=== PATIENT | male | born 1980 | race Caucasian/White ===

== ENCOUNTER 2022-03-23 18:18 | Inpatient (IN) | payer BC ==
[2022-03-23 19:12] LABS: CORONAVIRUS COVID-19 NAA NEGATIVE (NEGATIVE); INFLUENZA A NAA NEGATIVE (NEGATIVE); INFLUENZA B NAA NEGATIVE (NEGATIVE)
[2022-03-23] MEDS ORDERED: Sodium Chloride 0.9% 1,000 ML IV ONE (19:20)
[2022-03-23 19:21] LABS: CARBON DIOXIDE,CO2 26.5 mmol/L (21.0-32.0); POTASSIUM,K 3.8 mmol/L (3.5-5.1)
[2022-03-23] MEDS ORDERED: Ondansetron 4 MG/2 ML SDV IVPUSH ONE (21:10)
[2022-03-23] MEDS ORDERED: Iopamidol 755 MG/ML 500 ML Multipack Bottle IVPUSH STA (21:28)
[2022-03-23] MEDS: HYDROmorphone 1 MG/ML Syringe IVPUSH ONE ×2 (21:49→21:58)
[2022-03-23] MEDS ORDERED: cefTRIAXone 1 GM in Sodium Chloride 0.9% 50 ML IV ONE (22:27)
[2022-03-23] MEDS ORDERED: Azithromycin 500 MG in Sodium Chloride 0.9% 250 ML IV ONE (22:28)
[2022-03-23] MEDS ORDERED: Enoxaparin 100 MG/1 ML Syringe SUBCUT ONE (22:29)
[2022-03-24] MEDS ORDERED: Acetaminophen 325 MG Tab PO PRN (00:41)
[2022-03-24] MEDS ORDERED: oxyCODONE 5 MG Tab PO PRN (00:41)
[2022-03-24] MEDS ORDERED: Ondansetron 4 MG/2 ML SDV IVPUSH PRN (09:00)
[2022-03-24] MEDS ORDERED: Docusate Sodium 100 MG Cap PO PRN (09:00)
[2022-03-24] MEDS ORDERED: Albuterol/Ipratropium 3.0-0.5 MG/3 ML Neb Soln NEB PRN (10:00)
[2022-03-24] MEDS: Apixaban 5 MG Tab PO SCH ×2 (10:49→20:10)
[2022-03-24] MEDS ORDERED: cefTRIAXone 1 GM in Sodium Chloride 0.9% 50 ML IV SCH (21:00)
[2022-03-24] MEDS ORDERED: Azithromycin 500 MG in Sodium Chloride 0.9% 250 ML IV SCH (22:00)
[2022-03-25 04:47] VITALS: PULSE 83
[2022-03-25 06:05] LABS: HEMOGLOBIN A1C 6.2 %
[2022-03-25 06:07] LABS: CARBON DIOXIDE,CO2 28.2 mmol/L (21.0-32.0); POTASSIUM,K 4.3 mmol/L (3.5-5.1)
[2022-03-25] MEDS: Apixaban 5 MG Tab PO SCH (08:51)
[2022-03-25 09:43] VITALS: BP 140/78
== END 2022-03-25 12:50 | disposition home or self-care (01) | DRG 134 ==
LOC: MW.ED 18:18 → MW.MS 22:45
PROVIDERS: ADMIT Internal Medicine; ATTEND Internal Medicine
DX: I26.99 Other pulmonary embolism without acute cor pulmonale (principal); J18.9 Pneumonia, unspecified organism; J96.01 Acute respiratory failure with hypoxia; J45.909 Unspecified asthma, uncomplicated; G47.33 Obstructive sleep apnea (adult) (pediatric); E66.01 Morbid (severe) obesity due to excess calories; Z20.822 Contact with and (suspected) exposure to COVID-19; Z68.44 Body mass index [BMI] 60.0-69.9, adult; Z79.1 Long term (current) use of non-steroidal anti-inflammatories (NSAID); Z87.891 Personal history of nicotine dependence
CPT/HCPCS: 0240U; 36415; 71045; 71045-26; 71275; 71275-26; 80048; 80053; 80061; 83036; 83735; 84443; 84484; 85025; 85379; 85610; 85730; 87040; 93005; 93306; 93970; 93970-26; 94667; 96361; 96365; 96368; 96372; 96375; 99222; 99239; 99284; 99285-25; A9270-GY; J0456; J0696; J1170; J1650; J2405; J7030; J7050; Q9967